=== PATIENT | female | born 1945 | race Caucasian/White ===

== ENCOUNTER 2018-07-26 08:21 | Day surgery (SDC) | payer OTHER, MEDICARE ==
[2018-07-05 14:00] VITALS: BMI 23.5
[2018-07-26] MEDS ORDERED: LIDOCAINE HCL/PF 2% SDV 5ML VIAL ONE (08:35)
[2018-07-26] MEDS ORDERED: PROPOFOL 20 ML ONE ×2 (08:35)
[2018-07-26 12:08] VITALS: BP 146/75; PULSE 69; TEMP 98
== END 2018-07-26 09:45 | disposition home or self-care (01) ==
LOC: FASU-ENDO 08:21
PROVIDERS: ATTEND Internal Medicine Gastroenterology
PROC: 0DJD8ZZ Inspection of Lower Intestinal Tract, Via Natural or Artificial Opening Endoscopic (ICD-10-PCS; principal; 2018-07-26 08:53)
DX: Z86.010 Personal history of colon polyps (principal); D17.79 Benign lipomatous neoplasm of other sites; K57.30 Diverticulosis of large intestine without perforation or abscess without bleeding